=== PATIENT | male | born 1975 | race Caucasian/White ===

== ENCOUNTER 2018-05-14 21:56 | Inpatient (IN) | payer MEDICAID ==
[~2018-05-14] VITALS: Ht 188 cm; Wt 146.5 kg
--- NOTE | 2018-05-14 22:03 | NUR ---
PT BIBRA. COMP OF "45 SEC-1 MIN SEIZURE AND ANOTHER 10 SECOND SEIZURE REPORTED TO TRIAGE" PT RESPONSIVE TO PAINFUL STIMULI. ROJAS -SOB UNABLE TO SCALE PAIN LEVEL. SEIZURE PRECAUTIONS TAKEN.
[2018-05-14 22:20] LABS: BASOPHILS % (AUTO) 0.6 % (0.0-2.0); EOSINOPHILS % (AUTO) 0.3 % (0.0-6.0); HEMATOCRIT 49 % (39-51); HEMOGLOBIN 16.4 g/dL (13.5-17.5); LYMPHOCYTES % (AUTO) 27.3 % (20.0-44.0); MEAN CORPUSCULAR HGB CONC 34 g/dl (31.0-36.0); MEAN CORPUSCULAR VOLUME 101 fL (80-96); MONOCYTES # (AUTO) 0.8 /CMM (0.1-1.30); MONOCYTES % (AUTO) 11.7 % (2.0-12.0); NEUTROPHILS # (AUTO) 4.3 /CMM (1.8-8.9); NEUTROPHILS % (AUTO) 60.1 % (43.0-81.0); PLATELET COUNT (AUTO) 96 /CMM (150-450); RED BLOOD CELL COUNT(AUTO) 4.81 MIL/uL (4.5-6.0); WHITE BLOOD COUNT (AUTO) 7.2 K/uL (4.3-11.0)
[2018-05-14] MEDS ORDERED: IV NS 0.9% 1,000 ML BAG IV ONE (22:30)
[2018-05-14] MEDS ORDERED: LORAZEPAM INJ 2 MG/ML VIAL ONE (22:35)
[2018-05-14 22:42] LABS: ALANINE AMINOTRANSFERASE 98 U/L (12-78); ALBUMIN 3.9 g/dL (3.4-5.0); ALCOHOL, BLOOD < 3 mg/dL (0-0); ALKALINE PHOSPHATASE 127 U/L (46-116); ASPARTATE AMINOTRANSFERASE 154 U/L (15-37); BILIRUBIN,DIRECT 0.7 mg/dL (0.0-0.2); BILIRUBIN,TOTAL 1.7 mg/dL (0.2-1.0); CALCIUM, SERUM 9.3 mg/dL (8.5-10.1); CARBON DIOXIDE 14 mmol/L (21-32); CHLORIDE 90 mmol/L (98-107); CREATININE 1.7 mg/dL (0.6-1.3); GLUCOSE 173 mg/dL (74-106); POTASSIUM 2.9 mmol/L (3.5-5.1); SODIUM SERUM 136 mmol/L (136-145); TOTAL PROTEIN, SERUM 8.5 g/dL (6.4-8.2); UREA NITROGEN, BLOOD 11 mg/dL (7-18)
--- NOTE | 2018-05-14 22:45 | NUR ---
CALLED NURSE SUP FOR TELE BED
[2018-05-14] MEDS ORDERED: POTASSIUM CHLORIDE 20 MEQ TAB.PRT.SR PO ONE ×3 (23:14→23:30)
[2018-05-14 23:33] LABS: CALCIUM, SERUM 9.2 mg/dL (8.5-10.1); CREATININE 1.1 mg/dL (0.6-1.3); POTASSIUM 2.9 mmol/L (3.5-5.1)
[2018-05-14 23:37] LABS: APPEARANCE,URINE Slightly Cloudy (CLEAR); BILIRUBIN,URINE LARGE (NEGATIVE); BLOOD, URINE Large Ery/uL (NEGATIVE); COLOR,URINE Amber (YELLOW); KETONES,URINE 40 (NEGATIVE); LEUKOCYTE ESTERASE ,URINE Negative (NEGATIVE); NITRITE, URINE Negative (NEGATIVE); PH,URINE 5.5 (5.0-8.0); PROTEIN,URINE >=300 mg/dl (NEGATIVE); UGLUCOSE 100 MG/DL mg/dL (NEGATIVE)
[2018-05-14 23:39] LABS: ALBUMIN 3.6 g/dL (3.4-5.0); BILIRUBIN,TOTAL 1.8 mg/dL (0.2-1.0); TOTAL PROTEIN, SERUM 7.7 g/dL (6.4-8.2)
[2018-05-14] MEDS ORDERED: IV NS 0.9% 1,000 ML IV PRN (23:53)
--- NOTE | 2018-05-14 23:57 | NUR ---
REPORT GIVEN TO MIGUEL CARRILLO.
[2018-05-15] VITALS (10 sets, daily range): BP systolic 135–187; BP diastolic 86–105
[2018-05-15] MEDS ORDERED: Z GUARD REMEDY 2 OZ OINT TP PRN
[2018-05-15] MEDS ORDERED: ONDANSETRON HCL/PF 4 MG/2 ML VIAL IVP PRN
[2018-05-15] MEDS ORDERED: MAG HYDROX/AL HYDROX/SIMETH 30 ML UDC PO PRN
[2018-05-15] MEDS ORDERED: LORAZEPAM INJ 2 MG/ML VIAL IV PRN ×2
[2018-05-15] MEDS ORDERED: HYDROCODONE/APAP 5/325MG 1 EACH TABLET PO PRN
[2018-05-15] MEDS ORDERED: IV NS 0.9% 1,000 ML BAG IV ONE
[2018-05-15] MEDS ORDERED: TEMAZEPAM 15 MG CAPSULE PO PRN
[2018-05-15] MEDS ORDERED: ACETAMINOPHEN 325 MG TABLET PO PRN
[2018-05-15] MEDS ORDERED: MAGNESIUM HYDROXIDE 30 ML UDC PO PRN
[2018-05-15 00:10] LABS: LYMPHOCYTES % (MANUAL) 23 % (16-48); MONOCYTES % (MANUAL) 7 % (0-11.0)
[2018-05-15 00:11] LABS: NEUTROPHILS % (MANUAL) 70 (42-76)
--- NOTE | 2018-05-15 01:00 | NUR ---
OIL PIPE INSPECTOR NOTES RECEIVE PT FROM [facility] AT 0038 ADMIT TO TELE PT A/O X 4, RESPIRATIONS EVEN AND UNLABORED. 02 SAT AT 98% R.A S/P 2 WITNESSED SEIZURE, SEIZURE PRECAUTION IMPLEMENTED. KEPT CLEAN AND DRY AND COMFORTABLE. UNABLE TO DO BODY FULL ASSESSMENT PT REFUSED PHOTOS AND REMOVED PANTS DESPITE EXPLAINING RISKS AND BENEFITS PER PT HE DOESN'T HAVE ANY WOUNDS HOSPITALIST AWARE. SAFETY MEASURES IMPLEMENTED. WILL CONT TO [facility].
[2018-05-15] MEDS: hydrALAZINE HCL IV 20 MG VIAL IV PRN ×3 (01:48→17:17)
--- NOTE | 2018-05-15 06:20 | NUR ---
RN CLOSING NOTE ASLEEP AND EASILY AWAKEN. SINUS TACH 118 IN THE TELE MTR. NOT IN DISTRESS. STABLE, RESPIRATIONS EVEN AND UNLABORED. NO SEIZURE THROUGHOUT THE SHIFT, NURSING CARE RENDERED, KEPT CLEAN AND DRY AND COMFORT, NEEDS ATTENDED AND ANTICIPATED. NO COMPLAIN OF PAIN. SAFETY MEASURES IN PLACE, CALL LIGHT WITHIN REACH. WILL ENDORSE TO DAY SHIFT FOR [facility].
[2018-05-15 07:12] LABS: BASOPHILS % (AUTO) 0.5 % (0.0-2.0); EOSINOPHILS % (AUTO) 0.3 % (0.0-6.0); HEMATOCRIT 43 % (39-51); HEMOGLOBIN 14.6 g/dL (13.5-17.5); LYMPHOCYTES # (AUTO) 0.7 /CMM (0.8-4.8); LYMPHOCYTES % (AUTO) 16.1 % (20.0-44.0); MEAN CORPUSCULAR HGB CONC 34 g/dl (31.0-36.0); MEAN CORPUSCULAR VOLUME 98 fL (80-96); MONOCYTES # (AUTO) 0.6 /CMM (0.1-1.30); MONOCYTES % (AUTO) 13.9 % (2.0-12.0); NEUTROPHILS # (AUTO) 2.8 /CMM (1.8-8.9); NEUTROPHILS % (AUTO) 69.2 % (43.0-81.0); PLATELET COUNT (AUTO) 63 /CMM (150-450); RED BLOOD CELL COUNT(AUTO) 4.35 MIL/uL (4.5-6.0); WHITE BLOOD COUNT (AUTO) 4.1 K/uL (4.3-11.0)
[2018-05-15 07:30] LABS: CALCIUM, SERUM 8.4 mg/dL (8.5-10.1); CREATININE 0.8 mg/dL (0.6-1.3); MAGNESIUM 1.3 mg/dL (1.8-2.4); PHOSPHORUS 3.1 mg/dL (2.5-4.9); POTASSIUM 2.9 mmol/L (3.5-5.1)
[2018-05-15 07:47] LABS: THYROID STIMULATING HORMONE 2.354 uIU/mL (0.358-3.74)
--- NOTE | 2018-05-15 08:00 | NUR ---
RN NOTES RECEIVED PATIENT IN THE BED TELE SR-115. PATIENT A/O X4, RO ACUTE RESPIRATORY DISTRESS, V/S TAKEN BP 158/90, P-110 ADMINISTERED APRESOLINE 10 MG/ML IV PUSH PRN, ALSO ADMINISTERED SCHEDULED MEDICATION. PATIENT REFUSED SI/HI, DEPRESS. MONITORING ON SEIZURE PRECAUTION. INFUSING MG 100 ML IV ON LEFT AC AREA INTACT. PATIENT USING URINAL. PATIENT AMBULATORY SELF CARE. SAFETY PRECAUTION MAINTAINED ALL THE TIME.
[2018-05-15] MEDS: THIAMINE HCL 100 MG TABLET PO SCH (08:44)
[2018-05-15] MEDS: FOLIC ACID 1 MG TABLET PO SCH (08:44)
[2018-05-15] MEDS: PANTOPRAZOLE 40 MG VIAL IV SCH (08:44)
[2018-05-15] MEDS: Magnesium 1GM/D5W 100ML PREMIX 100 ML IV SCH ×4 (08:49→12:31)
[2018-05-15] MEDS ORDERED: POTASSIUM CHLORIDE 20 MEQ TAB.PRT.SR PO ONE (09:00)
[2018-05-15 09:56] LABS: BACTERIA,URINE 0 /HPF (None Seen); SQUAMOUS EPITHELIAL CELL,UR Few /HPF (None Seen); WBC,URINE 0-2 /HPF (0-3)
--- NOTE | 2018-05-15 10:00 | NUR ---
RN NOTES PATIENT STATE "I AM GOING TO QUIT DRINKING'. PATIENT NOTED GOAL IS NO MORE DRINKING. V/S RETAKEN 155/95, P-96, PATIENT OVERWEIGHT. PATIENT REFUSED PAIN, NO SOB. PATIENT TURN AND REPOSTION SELF IN THE BED.MOTHER NEXT TO THE BED. CALL LIGHT WITHIN TO REACH, SAFETY PRECAUTION MAINTAINED ALL THE TIME.
--- NOTE | 2018-05-15 12:00 | NUR ---
Social service consult requested by TIFFANY Medina for ETOH. Pt. is a 42 year old male who was admitted to [facility] for an alcoholic seizure. SW met with pt. bedside. Pt. is alert and oriented x 4. Pt. was laying in bed watching TV. Pt. is pleasant and cooperative with SW during the assessment. Pt. states he resides with his fiance in a house located at [address] [place] [address]. [place] [id number]. Pt's emergency contact is his mother Sussy Bailey ; Work contact . 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 Pt. states he is looking for employment. Pt. stated, not having a job and boredom led him to drink a bottle of tequila per day. Pt. is also depressed due to not being able to find employment. Pt. started drinking a bottle of tequila a day after losing his job a year ago. Pt. appears to have some insight in regards to having to stop drinking. Pt. states having this seizure scared him and said, " it's not worth it." Pt. denies suicidal and homicidal ideations and visual/auditory hallucinations at this time. Pt. denies smoking cigarettes and using drugs. SW encouraged pt. to attend an alcohol treatment program, however pt. declined. Pt. is willing to take alcohol treatment program referrals. SW to offer pt. referrals upon discharge. No other social service needs are requested at this time. SW is available, if needed.
[2018-05-15] MEDS ORDERED: Potassium Chloride 40 MEQ in IV NS 0.9% 1,000 ML IV PRN (16:25)
--- NOTE | 2018-05-15 17:17 | NUR ---
RN NOTES V/S TAKEN BP-168/100, P-112, ADMINISTERED APRESOLINE 10 MG/ML IV PUSH PER ORDER, CONTINUED MONITORING.
--- NOTE | 2018-05-15 18:33 | NUR ---
RN NOTES NOTIFIED DR WEBSTER ABOUT TOTAL CREATININE KINASE LEVEL 943, BUT LAB NOT DOING CK-MB OUR LAB ANYMORE. WILL BE SEND OUT, RESULT WILLING IN COUPLE OF DAYS.
--- NOTE | 2018-05-15 18:54 | NUR ---
RN NOTES RECHECKED BP -161/105, P-125 , NOTIFIED DR JEONG. WAITING FOR RESPOND.
--- NOTE | 2018-05-15 19:00 | NUR ---
RN NOTES GET CALL BACK FROM DR JEONG , RECHECK BP IN 15 MIN, IF BLOOD PRESSURE STILL HIGH, ADMINISTERED CLONIDINE 0.1 MG ML IV X1, ORDER TAKEN AND CARRIED OUT.
--- NOTE | 2018-05-15 19:15 | NUR ---
RN NOTES RECHECKED BP 158/ 99, P-121 AT THIS TIME. PATIENT NOTIFIED FEEL ANXIOUS BECAUSE OF HE IS IN THE HOSPITAL. PATIENT LISTENING MUSIC. STABLE. CALL LIGHT WITHIN TO REACH. ENDORSED ONCOMING NURSE FOR PLAN OF CARE.
--- NOTE | 2018-05-15 19:20 | NUR ---
RN NOTES GET CALL FROM LABORATORY SENDING OUT BLOOD FOR CK-MB TEST. INDORSED ONCOMING NURSE FOR PLAN OF CARE.
[2018-05-15] MEDS ORDERED: CLONIDINE HCL 0.1 MG TABLET PO ONE (20:00)
--- NOTE | 2018-05-16 06:26 | NUR ---
MS RN NOTES AWAKE & RESPONSIVE. NOT IN ANY DISTRESS. NO SOB NOTED. DENIES ANY PAIN OR DISCOMFORT AT THIS TIME. WITH IVF INFUSING WELL. MONITORED ACCORDINGLY. CALL LIGHT WITHIN REACH. BED IN LOWEST POSITION. SR UP X 2 FOR SAFETY. WILL ENDORSE TO NEXT SHIFT.
[2018-05-16 07:27] LABS: BASOPHILS % (AUTO) 0.7 % (0.0-2.0); EOSINOPHILS % (AUTO) 1.7 % (0.0-6.0); HEMATOCRIT 45 % (39-51); HEMOGLOBIN 15.4 g/dL (13.5-17.5); LYMPHOCYTES % (AUTO) 27.2 % (20.0-44.0); MEAN CORPUSCULAR HGB CONC 34 g/dl (31.0-36.0); MEAN CORPUSCULAR VOLUME 99 fL (80-96); MONOCYTES # (AUTO) 0.5 /CMM (0.1-1.30); MONOCYTES % (AUTO) 14.8 % (2.0-12.0); NEUTROPHILS % (AUTO) 55.6 % (43.0-81.0); PLATELET COUNT (AUTO) 76 /CMM (150-450); RED BLOOD CELL COUNT(AUTO) 4.59 MIL/uL (4.5-6.0); WHITE BLOOD COUNT (AUTO) 3.6 K/uL (4.3-11.0)
[2018-05-16] MEDS: hydrALAZINE HCL IV 20 MG VIAL IV PRN (07:31)
[2018-05-16 07:37] LABS: CALCIUM, SERUM 8.5 mg/dL (8.5-10.1); CREATININE 0.8 mg/dL (0.6-1.3); POTASSIUM 3.4 mmol/L (3.5-5.1)
--- NOTE | 2018-05-16 07:42 | NUR ---
RN OPENING NOTES PT RECEIVED IN BED AT LOWEST AND LOCKED POSITION WITH SIDE RAILS UP X2, A/O X4, BREATHING EVEN AND UNLABORED, NO S/S OF PAIN OR DISTRESS NOTED, BP THIS MORNING WAS NOTED TO BE 172/102 WITH A PULSE OF 113 SO PRN HYRDALAZINE WAS GIVEN, IV IS PATENT AND INTACT, NOTED TO HAVE REFUSED SKIN ASSESSMENT AND PHOTOS, SAFETY PRECAUTIONS IN PLACE, CALL LIGHT WITHIN REACH WILL MONITOR ACCORDINGLY.
[2018-05-16 08:00] VITALS: BP 172/102
[2018-05-16] MEDS: FOLIC ACID 1 MG TABLET PO SCH (08:03)
[2018-05-16] MEDS: THIAMINE HCL 100 MG TABLET PO SCH (08:03)
[2018-05-16] MEDS: PANTOPRAZOLE 40 MG VIAL IV SCH (08:04)
[2018-05-16 09:04] LABS: EOSINOPHILS % (MANUAL) 1 % (0-4); LYMPHOCYTES % (MANUAL) 30 % (16-48); MONOCYTES % (MANUAL) 12 % (0-11.0); NEUTROPHILS % (MANUAL) 57 (42-76)
--- NOTE | 2018-05-16 10:05 | NUR ---
ALMA met with pt. bedside and gave him the following substance abuse referrals: Alcohol and Drug Treatment Programs [facility] Substance Abuse Self-helpline ([facility]) Contact number . Call the hotline and the gear tooth lapping machine operator will screen and link individual to an appropriate program. Must have Medi-dionicio or be Med-dionicio eligible. [facility] [address] [place] [address] [facility] [address] [place] [address] [facility] Program ([place]-Day based) [address] [place] [address] (Six months program and need to work for 8 hrs per day while in treatment) [facility] (No insurance required) [address] [place] [address] ALMA encouraged pt. to go attend a program and get sober. No other social service needs are requested at this time.
--- NOTE | 2018-05-16 11:37 | NUR ---
DISCHARGE NOTES PT WAS DISCHARGED IN MEDICALLY STABLE CONDITION BACK HOME AT THIS TIME. ALL EXITCARE, BELONGINGS LIST AND DISCHARGE PAPERWORK WERE DISCUSSED, SIGNED, AND HANDED TO THE PATIENT. HE WAS INFORMED TO FOLLOW UP WITH HIS PCP WITHIN A WEEK AND TO SEEK ALCOHOL REHAB TREATMENT. IV AND ID BAND WERE REMOVED. PT REFUSED SKIN ASSESSMENT AND PHOTOS. ALL NEEDS WERE ATTENDED TO DURING HIS STAY. PT WAS ESCORTED DOWN IN WHEELCHAIR BY LISA HUERTA AT THIS TIME WHERE HE LEFT WITH HIS MOTHER IN THEIR PRIVATE CAR.
== END 2018-05-16 11:36 | disposition home or self-care (01) | DRG 775 ==
LOC: ER 21:58 → TELE 23:18 → MED 05-15 09:29
PROVIDERS: ADMIT Hospitalist; ATTEND Hospitalist
DX: F10.239 Alcohol dependence with withdrawal, unspecified (principal); N17.0 Acute kidney failure with tubular necrosis; G40.509 Epileptic seizures related to external causes, not intractable, without status epilepticus; E46 Unspecified protein-calorie malnutrition; E83.42 Hypomagnesemia; E66.01 Morbid (severe) obesity due to excess calories; Z68.41 Body mass index [BMI] 40.0-44.9, adult; E87.1 Hypo-osmolality and hyponatremia; E87.6 Hypokalemia; I10 Essential (primary) hypertension; R73.9 Hyperglycemia, unspecified; R74.0 Nonspecific elevation of levels of transaminase and lactic acid dehydrogenase [LDH]; E86.1 Hypovolemia; E86.0 Dehydration
CPT/HCPCS: 36415; 70450-TC; 71045-TC; 76770-TC; 80048-TC; 80053-TC; 80061-TC; 80076-TC; 80305; 81000-TC; 82550-TC; 82962-TC; 83735-TC; 84100-TC; 84443-TC; 85025-TC; 85730-TC; 87081-TC; C9113; G0378; G0480; J0360; J2060; J3475; J3480; J7030

== ENCOUNTER 2018-06-18 18:20 | Emergency (ER) | payer MEDICAID ==
[~2018-06-18] VITALS: Ht 188 cm; Wt 142.4 kg
--- NOTE | 2018-06-18 18:43 | NUR ---
[id number] FROM HOME DUE TO SEIZURE. ALCOHOLIC LAST ALCOHOL WAS LAST NIGHT, PATIENT A/OX3, BREATHINGE RUBI AND UNLABORED, NO SOB NOTED, CAME IN WITH PIV ON LAC G18. SEIZURE PRECAUTION OBSERVED.
[2018-06-18 18:53] LABS: BASOPHILS # (AUTO) 0.1 /CMM (0.0-0.2); BASOPHILS % (AUTO) 1.1 % (0.0-2.0); EOSINOPHILS % (AUTO) 1.4 % (0.0-6.0); HEMATOCRIT 48 % (39-51); HEMOGLOBIN 16.1 g/dL (13.5-17.5); LYMPHOCYTES # (AUTO) 3.9 /CMM (0.8-4.8); LYMPHOCYTES % (AUTO) 45.3 % (20.0-44.0); MEAN CORPUSCULAR HGB CONC 34 g/dl (31.0-36.0); MEAN CORPUSCULAR VOLUME 95 fL (80-96); MONOCYTES # (AUTO) 0.4 /CMM (0.1-1.30); MONOCYTES % (AUTO) 4.9 % (2.0-12.0); NEUTROPHILS # (AUTO) 4.1 /CMM (1.8-8.9); NEUTROPHILS % (AUTO) 47.3 % (43.0-81.0); PLATELET COUNT (AUTO) 237 /CMM (150-450); RED BLOOD CELL COUNT(AUTO) 5.04 MIL/uL (4.5-6.0); WHITE BLOOD COUNT (AUTO) 8.6 K/uL (4.3-11.0)
--- NOTE | 2018-06-18 18:58 | NUR ---
PATIENT BROUGHT IN TO RADIOLOGY FOR CT.
[2018-06-18 18:59] LABS: CALCIUM, SERUM 8.8 mg/dL (8.5-10.1); CREATININE 0.9 mg/dL (0.6-1.3); POTASSIUM 3.3 mmol/L (3.5-5.1)
[2018-06-18] MEDS ORDERED: LEVETIRACETAM (500MG) 500 MG in IV NS 0.9% 100 ML IV ONE (19:00)
[2018-06-18] MEDS ORDERED: IV NS 0.9% 1,000 ML BAG IV ONE ×2 (19:00→20:00)
[2018-06-18] MEDS ORDERED: LORAZEPAM INJ 2 MG/ML VIAL IV ONE (19:00)
[2018-06-18] MEDS ORDERED: LORAZEPAM INJ 2 MG/ML VIAL ONE (19:06)
[2018-06-18 19:07] LABS: ALBUMIN 3.7 g/dL (3.4-5.0); BILIRUBIN,DIRECT 0.1 mg/dL (0.0-0.2); BILIRUBIN,TOTAL 0.2 mg/dL (0.2-1.0); TOTAL PROTEIN, SERUM 7.8 g/dL (6.4-8.2)
--- NOTE | 2018-06-18 19:10 | NUR ---
ENDORSED TO SILVESTRE SARAH FOR CONTINUITY OF CARE.
--- NOTE | 2018-06-18 19:13 | NUR ---
RECEIVED REPORT FROM GERARDO MANN FOR [facility]RIST[facility]ER. PT IS AAOX4, NOT IN RESPIRATORY DISTRESS, URINAL GIVEN BUT UNABLE TO PROVIDE URINE SPECIMEN.
[2018-06-18] MEDS ORDERED: Magnesium 1 GM/2 ML VIAL IV ONE (20:00)
[2018-06-18] MEDS ORDERED: Magnesium 1 GM/2 ML VIAL ONE (20:01)
[2018-06-18] MEDS ORDERED: Magnesium 1GM/D5W 100ML PREMIX 100 ML IV ONE (20:03)
--- NOTE | 2018-06-18 20:11 | NUR ---
DR. LINDQUIST AT BEDSIDE FOR REEVALUATION.
[2018-06-18 20:32] VITALS: BP 144/81
--- NOTE | 2018-06-18 21:08 | NUR ---
IV removed. Catheter intact and site benign. Pressure and 4x4 applied to site. No bleeding noted. Patient discharged to home in stable condition. Written and verbal after care instructions given. Patient verbalizes understanding of instruction.
== END 2018-06-18 21:10 | disposition home or self-care (01) ==
LOC: ER 18:23
DX: S81.011A Laceration without foreign body, right knee, initial encounter (principal); G40.909 Epilepsy, unspecified, not intractable, without status epilepticus; G31.2 Degeneration of nervous system due to alcohol; I10 Essential (primary) hypertension; F10.129 Alcohol abuse with intoxication, unspecified; E86.0 Dehydration; Y90.8 Blood alcohol level of 240 mg/100 ml or more; X58.XXXA Exposure to other specified factors, initial encounter; Y93.89 Activity, other specified; Y92.89 Other specified places as the place of occurrence of the external cause; Y99.8 Other external cause status
CPT/HCPCS: 36415; 70450; 80048; 80076; 80307; 83735; 85025; 85730; 96365; 96367; 96375; 99284; A4606; J1953; J2060; J3475; J7030 ×3; G0480